=== PATIENT | female | born 1990 | race Caucasian/White ===

== ENCOUNTER 2023-11-12 10:13 | Outpatient (CLI) | payer OTHER, SELFPAY ==
--- NOTE | 2023-11-12 10:19 | MM_ITS ---
WS: [id number] BILATERAL 3D TOMOSYNTHESIS DIGITAL DIAGNOSTIC MAMMOGRAPHY WITH CAD CLINICAL INFORMATION: MARIANO BR LUMPS AND PAIN HISTORY: Bilateral breast lumps COMPARISON: Baseline TECHNIQUE: Bilateral CC, MLO, and ML views. FINDINGS: The breasts are composed of extremely dense tissue, which can limit the detection of small underlying mass lesions. Dense parenchymal tissue deep to the palpable markers. Ultrasound of the areas of conc paloma is pending. ULTRASOUND BREAST BILATERAL TECHNIQUE: Ultrasound bilateral breast focused area of concern. CLINICAL INFORMATION: MARIANO BR LUMPS AND PAIN FINDINGS: RIGHT BREAST: Ultrasound RIGHT breast in the area of concern at the 9 o'clock position. Dense parench ymal fibrocystic tissue in this area. No suspicious lesions. LEFT BREAST: Ultrasound LEFT breast in the area of concern at the 6 o'clock position 2 cm from the ni pple. Dense fibrofatty ovoid tissue in this area likely fibroadenolipoma or fibrocystic change. This is probably benign and recommend 6-month follow-up to confirm stability. Area of interest measures 2. 8 x 0.7 cm IMPRESSION: MM/[place] [id number] BI-RADS: 3-Probably Benign FOLLOW UP: 6 Month Follow-up Recommend 6-month follow-up LEFT breast ultrasound at the 6 o'clock position 2 cm from the nipple
== END 2023-11-12 10:14 | disposition home or self-care (01) ==
LOC: RAD 10:14
PROVIDERS: Visit Provider Nurse Practitioner Family
DX: N63.25 Unspecified lump in the left breast, overlapping quadrants (principal); N63.15 Unspecified lump in the right breast, overlapping quadrants; R92.312 Mammographic fatty tissue density, left breast
CPT/HCPCS: 76642; 77062; G0279

== ENCOUNTER → 2024-12-19 08:21 | Outpatient (BNVA) | payer OTHER, SELFPAY | PROVIDERS: Visit Provider Nurse Practitioner | DX: M79.641 Pain in right hand (principal); Z46.89 Encounter for fitting and adjustment of other specified devices | CPT/HCPCS: 73130 ==

== ENCOUNTER 2025-01-20 06:49 | Outpatient (CLI) | payer OTHER, SELFPAY ==
--- NOTE | 2025-01-20 07:15 | MRR_ITS ---
PROCEDURE INFORMATION: Exam: MR Right Upper Extremity Other Than Joint Without Contrast; Hand Exam date and time: 01/20/2025 7:04 AM Age: 34 years old Clinical indication: RT hand pain x 3 months, area marked swells and affects use of digit 3-5. 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 ; Additional info: Right hand pain TECHNIQUE: Imaging protocol: MR of the right upper extremity without contrast. Exam focused on the hand. COMPARISON: CR XR hand RT min 3V* [id number] 12/19/2024 8:31 AM FINDINGS: Bones/joints: Moderate degenerative change at the 3rd and 4th CMC joints, with subchondral cystic change and mild patchy marrow edema in the capitate and less prominently hamate bones. No acute fracture. Collateral ligaments of digits: Unremarkable. No evidence of tear. Triangular fibrocartilage complex: Triangular fibrocartilage is not well seen, a component of which may be due to the resolution of the study. Flexor compartment tendons: There is focal moderate edema around the flexor tendons immediately distal to the carpal tunnel (image 16 series 9) underneath the marker of interest. There is mild palmar bowing of the flexor retinaculum. Mild tenosynovitis of the digital flexor tendons. Extensor compartment tendons: Unremarkable. No evidence of tear. Nerves: The median nerve is mildly enlarged, with mild increased signal within the carpal tunnel. Soft tissues: No appreciable joint effusion. MR/MR hand RT wo con* [id number] IMPRESSION: 1. There are findings suggestive of carpal tunnel syndrome, although somewhat atypical, and somewhat inconsistent with provided history. 2. Mild to moderate degenerative change at the 3rd and 4th carpometacarpal joints. 3. Otherwise, no acute abnormality.
== END 2025-01-20 06:50 | disposition home or self-care (01) ==
PROVIDERS: Visit Provider Nurse Practitioner
DX: M19.041 Primary osteoarthritis, right hand (principal); R93.6 Abnormal findings on diagnostic imaging of limbs; M65.841 Other synovitis and tenosynovitis, right hand
CPT/HCPCS: 73218